=== PATIENT | female | born 1935 | race Caucasian/White ===

== ENCOUNTER 2016-07-22 13:24 | Inpatient (IN) | payer MEDICAID ==
[~2016-07-22] VITALS: Ht 149.9 cm; Wt 51.7 kg
[~2016-07-22 13:24] MED LIST: AMLO2.5T45 PO; FERR-43 PO; LISI40TA4 PO; levemir SQ
[2016-07-22] MEDS ORDERED: FUROSEMIDE 40MG/4ML VIAL IV ONE (14:30)
[2016-07-22] MEDS ORDERED: ASPIRIN 81MG TABLET PO ONE (14:30)
[2016-07-22] MEDS ORDERED: NITROGLYCERIN OINT 1GM/INCH UDPKT TD ONE (14:30)
[2016-07-22 14:44] LABS: BG BASE EXCESS -8.7 mmol/L (-2.0-2.0); BG CARBOXYHEMOGLOBIN 0.2 % (0.5-1.5); BG DEOXYHEMOGLOBIN 5.1 % (0.0-5.0); BG HCO3 ACT 16.6 mmol/L (22.0-26.0); BG METHEMOGLOBIN 0.2 % (0.0-1.5); BG OXYGEN SATURATION 94.9 % (92.0-98.5); BG OXYHEMOGLOBIN 94.5 % (94.0-97.0); BG PCO2 33.1 mmHg (35.0-45.0); BG PH 7.317 (7.350-7.450); BG PO2 79.5 mmHg (75.0-100.0); BG SAMPLE SITE RIGHT RADIAL; BG TOTAL HEMOGLOBIN 8.2 g/dL (12.0-18.0); BG VENT MODE ROOM AIR
[2016-07-22 14:58] LABS: BASOPHILS % 0.7 % (0.0-2.0); EOSINOPHILS % 2.2 % (0.0-5.0); HEMATOCRIT. 23.2 % (36.0-48.0); HEMOGLOBIN. 7.5 g/dL (12.0-16.0); LYMPHOCYTES % 14.4 % (20.0-50.0); MEAN CORPUSCULAR HEMOGLOBIN 29.5 pg (28.0-32.0); MEAN CORPUSCULAR HGB CONC 32.5 g/dL (31.0-37.0); MEAN CORPUSCULAR VOLUME 90.7 fL (81.0-99.0); MEAN PLATELET VOLUME 8.4 fl (7.4-10.4); MONOCYTES % 10.5 % (2.0-8.0); NEUTROPHILS % 72.2 % (40.0-76.0); PLATELET 250 x1000/uL (130-400); RED BLOOD CELL COUNT 2.56 mill/uL (4.2-5.4); RED CELL DISTRIBUTION WIDTH 15.4 % (11.6-14.6); WHITE BLOOD COUNT 4.8 x1000/uL (4.5-11.0)
[2016-07-22 15:03] LABS: INR 1.1; PROTHROMBIN TIME 11.4 sec
[2016-07-22 15:12] LABS: ALANINE AMINOTRANSFERASE 15 IU/L (13-61); ALBUMIN 3.2 g/dL (3.4-5.0); ANION GAP 14; CALCIUM 7.9 mg/dL (8.5-10.1); CARBON DIOXIDE 19 mEq/L (21-32); CHLORIDE 115 mEq/L (98-107); INDEX HEMOLYSI 1 (1-3); INDEX ICTERIC 1 (1-4); INDEX LIPEMIC 1 (1-3); NT PRO B-TYPE NATRIURETIC PEP 9403 pg/mL (5-125); TROPONIN I 0.04 ng/mL (0.00-0.04); UREA NITROGEN BLOOD 65 mg/dL (7-21); eGFR 14 mL/min (>60)
[2016-07-22] MEDS ORDERED: MAGNESIUM/ALUMINUM HYDROXIDE/SIMETHICONE 30ML UDC PO PRN (17:30)
[2016-07-22] MEDS ORDERED: ONDANSETRON HCL 4MG/2ML VIAL IV PRN (17:30)
[2016-07-22] MEDS ORDERED: LORAZEPAM 2MG/ML CPJ IV PRN (17:30)
[2016-07-22] MEDS ORDERED: DIPHENHYDRAMINE 50MG/ML VIAL IV PRN (17:30)
[2016-07-22] MEDS ORDERED: TRAMADOL 50MG TABLET PO PRN (17:30)
[2016-07-22] MEDS ORDERED: DOCUSATE SODIUM 100MG CAPSULE PO PRN (17:30)
[2016-07-22] MEDS ORDERED: NA PHOS,M-B/NA PHOS,DI-BA ENEMA 118ML PR PRN (17:30)
[2016-07-22] MEDS ORDERED: NITROGLYCERIN 0.4MG TABLET SL SL PRN (17:30)
[2016-07-22] MEDS ORDERED: ACETAMINOPHEN 325MG TABLET PO PRN (17:30)
[2016-07-22] MEDS ORDERED: GUAIFENESIN 200MG/10ML SUGAR FREE UDC PO PRN (17:30)
[2016-07-22] MEDS ORDERED: IPRATROPIUM/ALBUTEROL 0.5-3(2.5)MG/3ML NEB INH PRN (17:30)
[2016-07-22] MEDS ORDERED: PANTOPRAZOLE SODIUM 40 MG/VIAL IV NR (18:00)
[2016-07-22] MEDS ORDERED: DEXTROSE 50% WATER 50ML SYRINGE IV PRN (21:15)
[2016-07-22 21:45] VITALS: BP 176/86
[2016-07-22] MEDS ORDERED: ZOLPIDEM TARTRATE 5MG TABLET PO PRN (22:00)
[2016-07-22] MEDS: CARVEDILOL 3.125 MG TABLET PO SCH (22:38)
[2016-07-22] MEDS: LISINOPRIL 20MG TABLET PO SCH (22:38)
[2016-07-22] MEDS: FUROSEMIDE 40MG/4ML VIAL IVP SCH (22:38)
[2016-07-23] VITALS (13 sets, daily range): BP systolic 128–169; BP diastolic 57–84
[2016-07-23] MEDS: CLONIDINE 0.1MG TABLET PO PRN ×2 (04:26→20:30)
[2016-07-23] MEDS: INSULIN LISPRO 100 UNITS/ML SUBCUT SCH ×4 (06:25→21:51)
[2016-07-23] MEDS: BLOOD SUGAR DIAGNOSTIC STRIP TEST SCH ×4 (06:25→21:00)
[2016-07-23] MEDS: FUROSEMIDE 40MG/4ML VIAL IVP SCH ×2 (08:32→20:29)
[2016-07-23] MEDS: CARVEDILOL 3.125 MG TABLET PO SCH ×2 (08:33→20:29)
[2016-07-23] MEDS: ZINC SULFATE 220 MG ( 50 ) CAPSULE PO SCH (08:33)
[2016-07-23] MEDS: LISINOPRIL 20MG TABLET PO SCH ×2 (08:33→20:29)
[2016-07-23] MEDS ORDERED: PANTOPRAZOLE SODIUM 40 MG/VIAL IV SCH (09:00)
[2016-07-23 09:07] LABS: BASOPHILS % 0.7 % (0.0-2.0); HEMATOCRIT. 27.3 % (36.0-48.0); HEMOGLOBIN. 9.1 g/dL (12.0-16.0); LYMPHOCYTES % 18.8 % (20.0-50.0); MEAN CORPUSCULAR HEMOGLOBIN 29.6 pg (28.0-32.0); MEAN CORPUSCULAR HGB CONC 33.3 g/dL (31.0-37.0); MEAN CORPUSCULAR VOLUME 88.7 fL (81.0-99.0); MEAN PLATELET VOLUME 8.1 fl (7.4-10.4); MONOCYTES % 9.9 % (2.0-8.0); NEUTROPHILS % 66.6 % (40.0-76.0); PLATELET 232 x1000/uL (130-400); RED BLOOD CELL COUNT 3.07 mill/uL (4.2-5.4); RED CELL DISTRIBUTION WIDTH 15.8 % (11.6-14.6); WHITE BLOOD COUNT 5.3 x1000/uL (4.5-11.0)
[2016-07-23 09:37] LABS: ALANINE AMINOTRANSFERASE 13 IU/L (13-61); ALBUMIN 3.2 g/dL (3.4-5.0); ANION GAP 12; CARBON DIOXIDE 20 mEq/L (21-32); CHLORIDE 112 mEq/L (98-107); INDEX HEMOLYSI 1 (1-3); INDEX ICTERIC 1 (1-4); INDEX LIPEMIC 1 (1-3); UREA NITROGEN BLOOD 63 mg/dL (7-21); eGFR 13 mL/min (>60)
[2016-07-23] MEDS ORDERED: BACTERIOSTATIC SODIUM CHLORIDE 0.9% 30ML VIAL IJ ONE (10:48)
[2016-07-23] MEDS ORDERED: NALOXONE HCL 0.4 MG/ML 1ML VIAL ONE ×2 (10:48→16:52)
[2016-07-23] MEDS ORDERED: SIMETHICONE 40 MG/0.6 ML 30ML ONE ×2 (10:48→16:30)
[2016-07-23 11:54] LABS: INDEX HEMOLYSI 1 (1-3); INDEX ICTERIC 1 (1-4); INDEX LIPEMIC 1 (1-3); IRON 43 ug/dL (50-175); TOTAL IRON BINDING CAPACITY 235 ug/dL (250-450)
[2016-07-23] MEDS ORDERED: MIDAZOLAM HCL 5 MG/5 ML VIAL ONE (16:30)
[2016-07-23] MEDS ORDERED: FENTANYL CITRATE/PF 50MCG/ML 2ML VIAL ONE (16:30)
[2016-07-23] MEDS ORDERED: FENTANYL CITRATE/PF 50MCG/ML 2ML VIAL IV PRN (16:36)
[2016-07-23] MEDS ORDERED: MIDAZOLAM HCL 5 MG/5 ML VIAL IV PRN (16:36)
[2016-07-23] MEDS ORDERED: NALOXONE HCL 0.4 MG/ML 1ML VIAL IV NR (16:48)
[2016-07-23] MEDS ORDERED: FLUMAZENIL 0.1 MG/ML 5ML VIAL IV NR (17:27)
[2016-07-23 18:22] LABS: BG BASE EXCESS -8.2 mmol/L (-2.0-2.0); BG CARBOXYHEMOGLOBIN 0.5 % (0.5-1.5); BG DEOXYHEMOGLOBIN 2.5 % (0.0-5.0); BG FRACTION INSPIRED OXYGEN 32; BG METHEMOGLOBIN 0.3 % (0.0-1.5); BG OXYGEN SATURATION 97.5 % (92.0-98.5); BG OXYHEMOGLOBIN 96.7 % (94.0-97.0); BG PCO2 39.4 mmHg (35.0-45.0); BG PH 7.277 (7.350-7.450); BG PO2 109.6 mmHg (75.0-100.0); BG SAMPLE SITE RIGHT RADIAL; BG TOTAL HEMOGLOBIN 9.3 g/dL (12.0-18.0); BG VENT MODE NASAL CANNULA
[2016-07-23] MEDS: PANTOPRAZOLE SODIUM 40 MG/VIAL IV SCH (20:29)
[2016-07-24] VITALS (9 sets, daily range): BP systolic 90–133; BP diastolic 46–62
[2016-07-24] MEDS: BLOOD SUGAR DIAGNOSTIC STRIP TEST SCH ×2 (07:59→12:01)
[2016-07-24] MEDS: INSULIN LISPRO 100 UNITS/ML SUBCUT SCH ×2 (08:00→12:12)
[2016-07-24] MEDS: LISINOPRIL 20MG TABLET PO SCH (09:00)
[2016-07-24] MEDS: CARVEDILOL 3.125 MG TABLET PO SCH (09:00)
[2016-07-24] MEDS: PANTOPRAZOLE SODIUM 40 MG/VIAL IV SCH (09:06)
[2016-07-24] MEDS: ZINC SULFATE 220 MG ( 50 ) CAPSULE PO SCH (09:06)
[2016-07-24] MEDS: FUROSEMIDE 40MG/4ML VIAL IVP SCH (09:06)
== END 2016-07-24 19:21 | disposition home or self-care (01) | DRG 253 ==
LOC: ER 13:27 → 8WST 15:33 → 5EST 07-23 18:36
PROVIDERS: ADMIT Internal Medicine; ATTEND Internal Medicine
PROC: 0DB58ZX Excision of Esophagus, Via Natural or Artificial Opening Endoscopic, Diagnostic (ICD-10-PCS; 2016-07-23)
PROC: 30233N1 Transfusion of Nonautologous Red Blood Cells into Peripheral Vein, Percutaneous Approach (ICD-10-PCS; 2016-07-23)
PROC: 0DB98ZX Excision of Duodenum, Via Natural or Artificial Opening Endoscopic, Diagnostic (ICD-10-PCS; principal; 2016-07-23 17:00)
DX: K92.2 Gastrointestinal hemorrhage, unspecified (principal); N17.0 Acute kidney failure with tubular necrosis; I50.43 Acute on chronic combined systolic (congestive) and diastolic (congestive) heart failure; E11.22 Type 2 diabetes mellitus with diabetic chronic kidney disease; I42.9 Cardiomyopathy, unspecified; E44.1 Mild protein-calorie malnutrition; D62 Acute posthemorrhagic anemia; E11.51 Type 2 diabetes mellitus with diabetic peripheral angiopathy without gangrene; N18.9 Chronic kidney disease, unspecified; F41.9 Anxiety disorder, unspecified; K59.00 Constipation, unspecified; I13.0 Hypertensive heart and chronic kidney disease with heart failure and stage 1 through stage 4 chronic kidney disease, or unspecified chronic kidney disease; K29.70 Gastritis, unspecified, without bleeding; Z79.4 Long term (current) use of insulin; Z88.0 Allergy status to penicillin; Z68.23 Body mass index [BMI] 23.0-23.9, adult
CPT/HCPCS: 36415; 36430; 36600; 71010; 80053; 80061; 82270; 82375; 82728; 82805; 82962; 83036; 83540; 83550; 83880; 84484; 85025; 85610; 86850; 86900; 86920; 88305; 88312; 88313; 93005; 93970; 96374; 96375; 99285; C9113; J1815; J1940; J2250; J2310; J3010; J3490; J7050; P9016